=== PATIENT | female | born 1965 | race Caucasian/White ===

== ENCOUNTER 2022-06-13 09:54 | Day surgery (SDC) | payer BC ==
[~2022-06-13] VITALS: Ht 154.9 cm; Wt 124.7 kg
[2022-06-13 10:35] LABS: HCG,QUAL RESULT NEGATIVE (NEGATIVE)
[2022-06-13] MEDS ORDERED: MEPERIDINE 100 MG INJ. 100 MG/ML VIAL ONE (12:13)
[2022-06-13] MEDS ORDERED: MIDAZOLAM HCL 5 MG/5 ML VIAL ONE ×2 (12:14)
[2022-06-13] MEDS ORDERED: iohexoL 240 mgI/mL, 50 ML INFUS..BTL IV ONE (12:15)
[2022-06-13 14:45] VITALS: BP_SYST 132
[2022-06-13] MEDS ORDERED: LIDOCAINE 1% 10 MG/ML, 20 ML MDV ONE (15:30)
[2022-06-13] MEDS ORDERED: HYDROmorphone 2 MG/ML VIAL ONE (15:30)
[2022-06-13] MEDS ORDERED: methylPREDNISolone ACETATE 40 MG/ML ONE (15:30)
[2022-06-13] MEDS ORDERED: MIDAZOLAM HCL 5 MG/ML VIAL (VERSED) IV ONE (15:30)
== END 2022-06-13 14:45 | disposition home or self-care (01) ==
LOC: SMU 09:54 → SDS 09:54
PROVIDERS: ATTEND Anesthesiology Pain Medicine
DX: M47.26 Other spondylosis with radiculopathy, lumbar region (principal); M48.061 Spinal stenosis, lumbar region without neurogenic claudication; Z20.822 Contact with and (suspected) exposure to COVID-19
CPT/HCPCS: 36415 ×2; 64483; 87426; 82962; 84703; U0003; Q9966; J2001; J1030; J2250 ×2; J1170; J2175; Q9967; 76000